=== PATIENT | female | born 1975 | race Caucasian/White ===

== ENCOUNTER 2016-06-06 10:13 | Emergency (ER) | payer BC ==
[2016-06-06 10:51] VITALS: BP 148/85
--- NOTE | 2016-06-06 13:03 | UC ---
FLU HPI - HPI Summary HPI Summary: SINUS CONGESTION FOR TWO MONTHS, BUT YESTERDAY DEVELOPED CHILLS, HEADACHE, COUGH , LOW GRADE FEVER. - History of Current Complaint Chief Complaint: UCRespiratory Stated Complaint: FEVER,SINUS COMPLAINT Time Seen by Provider: 06/06/16 11:55 Hx Obtained From: Patient Hx Last Menstrual Period: 06/01/16 Onset/Duration: Sudden Onset, Gradual Onset, Lasting Hours, Lasting Weeks, Worse Since - YESTERDAY Associated Signs & Symptoms: Positive: Fever, F/C, Myalgia, Cough, Nasal Congestion, Headache Related Hx: Possible Flu/Infectious Exposure - Allergy/Home Medications Allergies/Adverse Reactions: Allergies Allergy/AdvReac Type Severity Reaction Status Date / Time No Known Allergies Allergy Verified 06/06/16 10:37 Home Medications: Home Medications Acetaminophen TAB* [Tylenol TAB*] 500 mg PO Q4H PRN 06/06/16 [History Confirmed 06/06/16] Aleve Tab 2 tab PO ONCE PRN 06/06/16 [History Confirmed 06/06/16] Gpybtyq-Mobbyejjgm-Kquismq [Vicks Vaporub] 1 oin EX BEDTIME PRN 06/06/16 [ History Confirmed 06/06/16] Ibuprofen TAB* [Motrin TAB* 600 MG] 600 mg PO Q6H PRN 06/06/16 [History Confirmed 06/06/16] PMH/Surg Hx/FS Hx/Imm Hx Previously Healthy: Yes Endocrine History Of: Denies: Diabetes, Thyroid Disease, Hyperthyroidism, Hypothyroidism, Dyslipidemia Respiratory History Of: Denies: COPD, Asthma, Bronchitis, Pneumonia, Pulmonary Embolism GI/ History Of: Denies: Gastroesophageal Reflux, Ulcer, Gastrointestinal Bleed, Gall Bladder Disease, Kidney Stones, Diverticulitis, Renal Disease, Urosepsis Neurological History Of: Denies: TIA, CVA, Dementia, Seizures, Migraine Cancer History Of: Denies: Breast Cancer - Surgical History Surgical History: Yes Surgery Procedure, Year, and Place: APPENDIX, GALLBLADDER, Abdominal HERNIAs repaired, RIGHT SHOULDER SURGERY, Other Surgical History: fracture to foot age 8 - Family History Known Family History: Positive: Cardiac Disease - PGF, Hypertension - Social History Occupation: Employed Full-time Lives: With Family Alcohol Use: Occasionally Substance Use Type: None Smoking Status (MU): Former Smoker Amount Used/How Often: 1/3 PPD Length of Time of Smoking/Using Tobacco: 20 YEARS Have You Smoked in the Last Year: No When Did the Patient Quit Smoking/Using Tobacco: 6yrs Household Exposure Type: Cigarettes Review of Systems Constitutional: Fever, Chills, Fatigue Skin: Negative ENT: Sore Throat, Ear Ache, Nasal Discharge Respiratory: Cough Cardiovascular: Negative Gastrointestinal: Negative Genitourinary: Negative Motor: Negative Neurovascular: Negative Musculoskeletal: Myalgia Neurological: Negative Psychological: Negative All Other Systems Reviewed And Are Negative: Yes Physical Exam Triage Information Reviewed: Yes Appearance: Well-Appearing, No Pain Distress, Well-Nourished Vital Signs: Initial Vital Signs Temp 99.1 F 06/06/16 10:26 Pulse 84 06/06/16 10:26 Resp 18 06/06/16 10:26 BP 148/85 06/06/16 10:26 Pulse Ox 96 06/06/16 10:26 Vital Signs Reviewed: Yes Eye Exam: Normal Eyes: Positive: Conjunctiva Clear ENT: Positive: Hearing grossly normal, Pharynx normal, Nasal congestion, TM dull Dental Exam: Normal Neck exam: Normal Neck: Positive: Supple, Nontender, No Lymphadenopathy Respiratory Exam: Normal Respiratory: Positive: Chest non-tender, Lungs clear, Normal breath sounds, No respiratory distress, No accessory muscle use Cardiovascular Exam: Normal Cardiovascular: Positive: RRR, No Murmur, Pulses Normal Abdominal Exam: Normal Abdomen Description: Positive: Nontender, No Organomegaly Musculoskeletal Exam: Normal Musculoskeletal: Positive: Strength Intact, ROM Intact Neurological Exam: Normal Psychological Exam: Normal Skin Exam: Normal Flu Course/Dx - Differential Dx/Diagnosis Differential Diagnosis/HQI/PQRI: Influenza, Upper Respiratory Infection Provider Diagnoses: INFLUENZA Discharge - Discharge Plan Condition: Stable Disposition: HOME Prescriptions: Oseltamivir CAP* [Tamiflu CAP*] 75 mg PO BID #10 cap Patient Education Materials: Influenza (ED) Forms: *Work Release Referrals: Chris Sebastian MD [Primary Care Provider] -
== END 2016-06-06 13:06 | disposition home or self-care (01) ==
LOC: UCCORT 10:13
DX: J11.1 Influenza due to unidentified influenza virus with other respiratory manifestations (principal); R03.0 Elevated blood-pressure reading, without diagnosis of hypertension; Z90.49 Acquired absence of other specified parts of digestive tract; Z87.891 Personal history of nicotine dependence
CPT/HCPCS: 87502; 99212; G0463

== ENCOUNTER 2016-06-10 12:25 | Emergency (ER) | payer BC ==
[2016-06-10 13:02] LABS: Hematocrit 39 % (35-47); Hemoglobin 12.8 g/dl (12.0-16.0); Mean Corpuscular HGB Conc 33 g/dl (31-36); Mean Corpuscular Hemoglobin 27 pg (27-31); Mean Corpuscular Volume 81 fL (80-97); Mean Platelet Volume 7 um3 (7.4-10.4); Red Blood Count 4.78 10^6/ul (4.0-5.4); Red Cell Distribution Width 15 % (10.5-15); White Blood Count 3.9 10^3/ul (3.5-10.8)
[2016-06-10] MEDS ORDERED: NS 0.9% 1000 ML* 1,000 ML IV ONE (13:03)
[2016-06-10] MEDS ORDERED: Meclizine TAB* 12.5 MG PO ONE (13:03)
[2016-06-10 13:16] LABS: ALT 19 U/L (7-52); AST 22 U/L (13-39); Albumin 3.6 g/dL (3.2-5.2); Alkaline Phosphatase 63 U/L (34-104); Anion Gap 7 mmol/L (2-11); Blood Urea Nitrogen 8 mg/dL (6-24); CO2 Carbon Dioxide 26 mmol/L (22-32); Calcium 8.8 mg/dL (8.6-10.3); Chloride 103 mmol/L (101-111); EGFR African American 186.9 (>60); EGFR Non-African American 145.3 (>60); Globulin 3.7 g/dL (2-4); Glucose 113 mg/dL (70-100); Magnesium 1.9 mg/dL (1.9-2.7); Potassium 3.5 mmol/L (3.5-5.0); Sodium 136 mmol/L (133-145); Total Protein 7.3 g/dL (6.4-8.9)
--- NOTE | 2016-06-10 13:20 | RAD ---
INDICATION: Shortness of breath COMPARISON: None. TECHNIQUE: Single AP portable view of the chest was obtained. FINDINGS: Image quality is compromised due to the relative inferiority of a portable chest x-ray. The heart and mediastinum exhibit normal size and contour. The lungs are grossly clear. There is no evidence of a large pleural effusion. Visualized bones are normal for the patient's age. IMPRESSION: No radiographic evidence for acute cardiopulmonary abnormality on this portable chest x-ray.
[2016-06-10 13:57] LABS: TSH (Thyroid Stimulating Horm) 1.09 mcIU/mL (0.34-5.60)
[2016-06-10 15:02] LABS: Urine Bilirubin Negative (Negative); Urine Glucose Negative (Negative); Urine Nitrite Negative (Negative)
[2016-06-10] MEDS ORDERED: LORazepam INJ* 2 MG/ML 1 ML VIAL IV ONE (16:21)
[2016-06-10 18:35] VITALS: BP 148/73
--- NOTE | 2016-06-12 07:45 | ED ---
Gurinder Jarquin Erika, scribed for Vaughn Michele MD on 06/10/16 at 1304 . Dizziness - HPI Summary HPI Summary: Patient is a 40-year-old female presenting to the ED with a CC of lightheadedness. Patient reports that she developed symptoms of fatigue, fever, chills, headache, sinus congestion, and cough on 06/04. She was diagnosed with Influenza B after a positive swab on 06/06/2016. Patient started taking Tamiflu but did not complete the course due to side effects. She also alternated between acetaminophen and ibuprofen, stopping on 06/15/2016. Patient was feeling improved yesterday. Today at 09:00, patient was eating breakfast and then developed lightheadedness and dizziness, which worsened gradually. She also developed palpitations described as a fluttering sensation, as well as some intermittent chest tightness in the the left lateral and left upper anterior chest. Patient still notes some dizziness, alleviated by closing her eyes or lying down. Patient does report that the road appeared "wavy" while she was in the car on the way over. Patient also reports the intermittent chest tightness is still present. She denies any SOB. Patient does not take any medications. SHx appendectomy, cholecystectomy, multiple hernia repairs, shoulder surgery. - History Of Current Complaint Chief Complaint: EDDysrhythmPalp Stated Complaint: LIGHTHEADED / CHEST PAIN Time Seen by Provider: 06/10/16 12:43 Hx Obtained From: Patient Onset/Duration: Still Present Timing: Constant Severity Currently: Moderate Character: Lightheaded, Dizzy Aggravating Factor(s): Supine To Erect Alleviating Factor(s): Lying Down, Closing Eyes Associated Signs And Symptoms: Positive: Palpitations. Negative: SOB - Allergies/Home Medications Allergies/Adverse Reactions: Allergies Allergy/AdvReac Type Severity Reaction Status Date / Time No Known Allergies Allergy Verified 06/10/16 12:31 PMH/Surg Hx/FS Hx/Imm Hx Endocrine/Hematology History: Reports: Hx Anemia - NO MEDS Denies: Hx Diabetes, Hx Thyroid Disease Respiratory History: Denies: Hx Asthma, Hx Chronic Obstructive Pulmonary Disease (COPD), Hx Pneumonia, Hx Pulmonary Embolism GI History: Denies: Hx Gall Bladder Disease, Hx Gastrointestinal Bleed, Hx Ulcer, Hx Urosepsis History: Denies: Hx Kidney Stones, Hx Renal Disease Musculoskeletal History: Reports: Hx Tendonitis - BILATERAL Sensory History: Denies: Hx Contacts or Glasses, Hx Hearing Aid Opthamlomology History: Denies: Hx Contacts or Glasses Neurological History: Denies: Hx Dementia, Hx Migraine, Hx Seizures, Hx Transient Ischemic Attacks (TIA) Psychiatric History: Denies: Hx Panic Disorder - Cancer History Hx Chemotherapy: No Hx Radiation Therapy: No - Surgical History Surgery Procedure, Year, and Place: APPENDIX, GALLBLADDER, HERNIA, RIGHT SHOULDER SURGERY, HERNIA REPAIR Hx Anesthesia Reactions: No - NAUSEA, PATIENT REQUESTS NO MORPHINE Infectious Disease History: No Infectious Disease History: Denies: Hx Clostridium Difficile, Hx Hepatitis, Hx Human Immunodeficiency Virus (HIV), Hx of Known/Suspected MRSA, Hx Shingles, Hx Tuberculosis, Hx Known/ Suspected VRE, Hx Known/Suspected VRSA, History Other Infectious Disease, Traveled Outside the in Last 30 Days - Family History Known Family History: Positive: Cardiac Disease - PGF, Hypertension - Social History Alcohol Use: Occasionally Hx Substance Use: No Substance Use Type: Reports: None Hx Tobacco Use: Yes Smoking Status (MU): Light Every Day Tobacco Smoker Amount Used/How Often: 1/3 PPD Length of Time of Smoking/Using Tobacco: 20 YEARS Have You Smoked in the Last Year: No Review of Systems Positive: Fever, Chills, Fatigue ENT: Other - sinus congestion Cardiovascular: Other - chest tightness Positive: Palpitations Positive: Cough. Negative: Shortness Of Breath Neurological: Other - lightheadedness, dizziness Positive: Headache All Other Systems Reviewed And Are Negative: Yes Physical Exam Triage Information Reviewed: Yes Vital Signs On Initial Exam: Initial Vitals Temp Pulse Resp BP Pulse Ox 98.2 F 78 16 158/95 99 06/10/16 12:28 06/10/16 12:28 06/10/16 12:28 06/10/16 12:28 06/10/16 12:28 Vital Signs Reviewed: Yes Appearance: Positive: Well-Appearing, No Pain Distress Skin: Positive: Warm, Skin Color Reflects Adequate Perfusion, Dry Head/Face: Positive: Normal Head/Face Inspection Eyes: Positive: Other: - Fatiguing nystagmus bilaterally, right worse than left ENT: Positive: Normal ENT inspection Neck: Positive: Supple, Nontender Respiratory/Lung Sounds: Positive: Clear to Auscultation, Breath Sounds Present Cardiovascular: Positive: RRR Abdomen Description: Positive: Nontender, Soft Bowel Sounds: Positive: Present Musculoskeletal: Positive: Normal Neurological: Positive: Other - Fatiguing nystagmus bilaterally, right worse than left Psychiatric: Positive: Affect/Mood Appropriate - [place] Coma Scale Coma Scale Total: 15 Diagnostics - Vital Signs Vital Signs Temp Pulse Resp BP Pulse Ox 06/10/16 12:37 73 95 06/10/16 12:35 159/97 06/10/16 12:28 98.2 F 78 16 158/95 99 - Laboratory Lab Results: Lab Results 06/10/16 06/10/16 06/10/16 Range/Units 12:50 12:50 12:50 WBC 3.9 (3.5-10.8) 10^3/ul RBC 4.78 (4.0-5.4) 10^6/ul Hgb 12.8 (12.0-16.0) g/dl Hct 39 (35-47) % MCV 81 (80-97) fL MCH 27 (27-31) pg MCHC 33 (31-36) g/dl RDW 15 (10.5-15) % Plt Count 242 (150-450) 10^3/ul MPV 7 L (7.4-10.4) um3 Neut % (Auto) 51.3 (38-83) % Lymph % (Auto) 35.2 (25-47) % [place] % (Auto) 11.9 H (1-9) % Eos % (Auto) 0.5 (0-6) % Baso % (Auto) 1.1 (0-2) % Absolute Neuts (auto) 2.0 (1.5-7.7) 10^3/ul Absolute Lymphs (auto) 1.4 (1.0-4.8) 10^3/ul Absolute Monos (auto) 0.5 (0-0.8) 10^3/ul Absolute Eos (auto) 0 (0-0.6) 10^3/ul Absolute Basos (auto) 0 (0-0.2) 10^3/ul Absolute Nucleated RBC 0 10^3/ul Nucleated RBC % 0.1 Sodium 136 (133-145) mmol/L Potassium 3.5 (3.5-5.0) mmol/L Chloride 103 (101-111) mmol/L Carbon Dioxide 26 (22-32) mmol/L Anion Gap 7 (2-11) mmol/L BUN 8 (6-24) mg/dL Creatinine 0.47 L (0.51-0.95) mg/dL Est GFR ( Amer) 186.9 (>60) Est GFR (Non-Af Amer) 145.3 (>60) BUN/Creatinine Ratio 17.0 (8-20) Glucose 113 H (70-100) mg/dL Lactic Acid 1.5 (0.5-2.0) mmol/L Calcium 8.8 (8.6-10.3) mg/dL Magnesium 1.9 (1.9-2.7) mg/dL Total Bilirubin 0.30 (0.2-1.0) mg/dL AST 22 (13-39) U/L ALT 19 (7-52) U/L Alkaline Phosphatase 63 (34-104) U/L Troponin I 0.00 (<0.04) ng/mL Total Protein 7.3 (6.4-8.9) g/dL Albumin 3.6 (3.2-5.2) g/dL Globulin 3.7 (2-4) g/dL Albumin/Globulin Ratio 1.0 (1-3) TSH 1.09 (0.34-5.60) mcIU/mL Beta HCG, Quant < 0.60 mIU/mL Urine Color Urine Appearance Urine pH (5-9) Ur Specific [place] (1.010-1.030) Urine Protein (Negative) Urine Ketones (Negative) Urine Blood (Negative) Urine Nitrate (Negative) Urine Bilirubin (Negative) Urine Urobilinogen (Negative) Ur Leukocyte Esterase (Negative) Urine Glucose (Negative) 06/10/16 Range/Units 14:53 WBC (3.5-10.8) 10^3/ul RBC (4.0-5.4) 10^6/ul Hgb (12.0-16.0) g/dl Hct (35-47) % MCV (80-97) fL MCH (27-31) pg MCHC (31-36) g/dl RDW (10.5-15) % Plt Count (150-450) 10^3/ul MPV (7.4-10.4) um3 Neut % (Auto) (38-83) % Lymph % (Auto) (25-47) % [place] % (Auto) (1-9) % Eos % (Auto) (0-6) % Baso % (Auto) (0-2) % Absolute Neuts (auto) (1.5-7.7) 10^3/ul Absolute Lymphs (auto) (1.0-4.8) 10^3/ul Absolute Monos (auto) (0-0.8) 10^3/ul Absolute Eos (auto) (0-0.6) 10^3/ul Absolute Basos (auto) (0-0.2) 10^3/ul Absolute Nucleated RBC 10^3/ul Nucleated RBC % Sodium (133-145) mmol/L Potassium (3.5-5.0) mmol/L Chloride (101-111) mmol/L Carbon Dioxide (22-32) mmol/L Anion Gap (2-11) mmol/L BUN (6-24) mg/dL Creatinine (0.51-0.95) mg/dL Est GFR ( Amer) (>60) Est GFR (Non-Af Amer) (>60) BUN/Creatinine Ratio (8-20) Glucose (70-100) mg/dL Lactic Acid (0.5-2.0) mmol/L Calcium (8.6-10.3) mg/dL Magnesium (1.9-2.7) mg/dL Total Bilirubin (0.2-1.0) mg/dL AST (13-39) U/L ALT (7-52) U/L Alkaline Phosphatase (34-104) U/L Troponin I (<0.04) ng/mL Total Protein (6.4-8.9) g/dL Albumin (3.2-5.2) g/dL Globulin (2-4) g/dL Albumin/Globulin Ratio (1-3) TSH (0.34-5.60) mcIU/mL Beta HCG, Quant mIU/mL Urine Color Yellow Urine Appearance Clear Urine pH 6.0 (5-9) Ur Specific [place] 1.011 (1.010-1.030) Urine Protein Negative (Negative) Urine Ketones Negative (Negative) Urine Blood Negative (Negative) Urine Nitrate Negative (Negative) Urine Bilirubin Negative (Negative) Urine Urobilinogen Negative (Negative) Ur Leukocyte Esterase Negative (Negative) Urine Glucose Negative (Negative) Result Diagrams: 06/10/16 12:50 06/10/16 12:50 Lab Statement: Any lab studies that have been ordered have been reviewed, and results considered in the medical decision making process. - Radiology CXR Radiology Interpretation Completed By: Radiologist - IMPRESSION: No radiographic evidence for acute cardiopulmonary abnormality on this portable chest x-ray. - EKG 12:34 Cardiac Rate: NL - at 72 bpm EKG Rhythm: Sinus Rhythm Re-Evaluation - Re-Evaluation First Eval Re-Evaluation Time: 14:53 Change: Improved Comment: Discussed lab, imaging, and EKG results with patient. Patient is currently being administered medication. Second Eval Re-Evaluation Time: 16:21 Change: Unchanged Comment: Patient notes some dizziness Third Eval Re-Evaluation Time: 18:19 Change: Improved Comment: Patient feels improved and will be discharged at this time Dizzy Course/Dx - Course Course Of Treatment: Ms. Cordova presented with vertiginous symptoms during the course of a viral illness. Her exam was consistent with a peripheral vertigo and she was rehydrated and treated with meclizine. She was still symptomatic and therefore given ativan which worked well. - Diagnoses Provider Diagnoses: Acute labyrinthitis Discharge - Discharge Plan Condition: Stable Disposition: HOME Prescriptions: LORazepam TAB(*) [Ativan TAB(*)] 1 mg PO Q6H PRN #20 tab MDD 4 PRN Reason: Pain Patient Education Materials: Vertigo (ED) Referrals: Chris Sebastian MD [Primary Care Provider] - 2 Days Additional Instructions: Please follow up with your PCP The documentation as recorded by the Gurinder pierce Erika accurately reflects the service I personally performed and the decisions made by me, Vaughn Michele MD.
== END 2016-06-10 18:44 | disposition home or self-care (01) ==
LOC: ED 12:25
DX: H83.09 Labyrinthitis, unspecified ear (principal); R42 Dizziness and giddiness; R00.2 Palpitations; R05 Cough; R07.9 Chest pain, unspecified; F17.210 Nicotine dependence, cigarettes, uncomplicated
CPT/HCPCS: 36415; 71010; 80053; 81003; 83605; 83735; 84443; 84484; 84702; 85025; 93005; 96374; 99283; A9270-GY; J2060

== ENCOUNTER 2018-07-08 10:39 | Emergency (ER) | payer BC ==
[2018-07-08 10:57] VITALS: BP 145/94
--- NOTE | 2018-07-08 11:13 | UC ---
[facility] Dental HPI - HPI Summary HPI Summary: dental pain x 1 day right upper back dental pain , started yesterday after eating popcorn worse with chewing , better with heat , right side upper face swelling no fever, no chills - History of Current Complaint Chief Complaint: UCDentalProblem Stated Complaint: DENTAL CONCERN Time Seen by Provider: 07/08/18 10:55 Hx Obtained From: Patient Hx Last Menstrual Period: June 28 ?: No Onset/Duration: Gradual Onset, Lasting Days - 1, Still Present Severity: Moderate Pain Intensity: 3 Aggravating Factor(s): Chewing Alleviating Factor(s): Other (see comments) - heat Dental: 1 - tenderness, caries - Allergies/Home Medications Allergies/Adverse Reactions: Allergies Allergy/AdvReac Type Severity Reaction Status Date / Time No Known Allergies Allergy Verified 07/08/18 10:57 Home Medications: Home Medications Cabergoline 0.5 mg PO SEE INSTRUCTIONS 07/08/18 [History Confirmed 07/08/18] clonazePAM TAB(*) [Klonopin TAB(*)] 1 tab PO Q48HR 07/08/18 [History Confirmed 07/08/18] PMH/Surg Hx/FS Hx/Imm Hx Previously Healthy: Yes - Surgical History Surgical History: Yes Surgery Procedure, Year, and Place: APPENDIX,. GALLBLADDER,. HERNIA Xs 2. RIGHT SHOULDER SURGERY Other Surgical History: fracture to foot age 8 - Family History Known Family History: Positive: Cardiac Disease - PGF, Hypertension - Social History Alcohol Use: Occasionally Substance Use Type: None Smoking Status (MU): Former Smoker Amount Used/How Often: 1/3 PPD Length of Time of Smoking/Using Tobacco: 20 YEARS Have You Smoked in the Last Year: No When Did the Patient Quit Smoking/Using Tobacco: 8 years ago Household Exposure Type: Cigarettes Review of Systems All Other Systems Reviewed And Are Negative: Yes Constitutional: Positive: Negative Skin: Positive: Negative Eyes: Positive: Negative ENT: Positive: Dental Pain Respiratory: Positive: Negative Is Patient Immunocompromised?: No Physical Exam Triage Information Reviewed: Yes Appearance: Well-Appearing, No Pain Distress, Well-Nourished Vital Signs: Initial Vital Signs Temp 98.6 F 07/08/18 10:50 Pulse 78 07/08/18 10:50 Resp 15 07/08/18 10:50 BP 145/94 07/08/18 10:50 Pulse Ox 99 07/08/18 10:50 Vital Signs Reviewed: Yes Eye Exam: Normal Eyes: Positive: Conjunctiva Clear ENT: Positive: Normal ENT inspection, Pharynx normal. Negative: Nasal congestion, Nasal drainage Dental: Positive: Percussion Tenderness @ - #4, Gross Decay/Caries @ - # 4 Neck: Positive: Supple, Nontender, No Lymphadenopathy Respiratory: Positive: Chest non-tender, Lungs clear, Normal breath sounds Cardiovascular: Positive: RRR, No Murmur, Pulses Normal Dental Complaint Course/Dx - Differential Dx/Diagnosis Provider Diagnosis: Pain, dental Discharge - Sign-Out/Discharge Documenting (check all that apply): Patient Departure All imaging exams completed and their final reports reviewed: No Studies - Discharge Plan Condition: Stable Disposition: HOME Prescriptions: Amoxicillin PO (*) [Amoxicillin 875 MG (*)] 875 mg PO BID #20 tab Patient Education Materials: Toothache (ED) Referrals: Chris Sebastian MD [Primary Care Provider] - Additional Instructions: follow up with your Dentist vanessa - Billing Disposition and Condition Condition: STABLE Disposition: Home
== END 2018-07-08 11:16 | disposition home or self-care (01) ==
LOC: UCCORT 10:39
DX: K08.89 Other specified disorders of teeth and supporting structures (principal); Z87.891 Personal history of nicotine dependence
CPT/HCPCS: 99212; G0463